=== PATIENT | female | born 1990 | race Caucasian/White ===

== ENCOUNTER 2018-01-23 20:45 | Outpatient (CLI) | payer MEDICAID | END 2018-01-23 23:20 | disposition home or self-care (01) | LOC: OBT 20:45 → L-D 20:46 | DX: O46.8X3 Other antepartum hemorrhage, third trimester (principal); O62.9 Abnormality of forces of labor, unspecified; Z3A.39 39 weeks gestation of pregnancy | CPT/HCPCS: Z7500 ==

== ENCOUNTER 2018-01-30 12:48 | Inpatient (IN) | payer MEDICAID ==
[2018-01-30] MEDS: LACTATED RINGER'S 1,000 ML IV ×3 (13:45→23:23)
[2018-01-30] MEDS ORDERED: LIDOCAINE 1% (MPF) 30 ML INJ INJ (14:00)
[2018-01-30] MEDS ORDERED: MISOPROSTOL 200 MCG TAB PR (14:00)
[2018-01-30] MEDS ORDERED: IBUPROFEN 600 MG TAB PO (14:00)
[2018-01-30] MEDS ORDERED: CARBOPROST 250 MCG INJ IM (14:00)
[2018-01-30] MEDS ORDERED: OXYTOCIN 30 UNITS/LR 500 ML IV (14:00)
[2018-01-30] MEDS ORDERED: METHYLERGONOVINE 0.2 MG INJ IM (14:00)
[2018-01-30 14:07] LABS: ADD MAN DIFF? NO
[2018-01-30 14:09] LABS: WHITE BLOOD COUNT 11.9 10^3/ul (4.8-10.8)
[2018-01-30 14:09] LABS: ABNORMAL IP MESSAGE 1; BASOPHILS % 0.2 % (0.0-2.0); EOSINOPHILS # 0.1 10^3/ul (0.0-0.5); EOSINOPHILS % 0.8 % (0.0-7.0); HEMATOCRIT 34.1 % (37.0-47.0); HEMOGLOBIN 11.3 g/dl (12.0-16.0); LYMPHOCYTES # 1.7 10^3/ul (0.8-2.9); LYMPHOCYTES % 13.9 % (15.0-51.0); MEAN CORPUSCULAR HGB CONC 33.1 g/dl (32.0-37.0); MEAN CORPUSCULAR VOLUME 78.4 fl (82.0-101.0); MEAN PLATELET VOLUME 13.3 fl (7.4-10.4); MONOCYTE # 0.6 10^3/ul (0.3-0.9); MONOCYTES % 4.8 % (0.0-11.0); NEUTROPHIL # 9.5 10^3/ul (1.6-7.5); NEUTROPHILS % 79.5 % (39.0-77.0); PLATELET COUNT 237 10^3/UL (140-415); POSITIVE DIFF @See below; RED BLOOD COUNT 4.35 10^6/ul (4.20-5.40)
[2018-01-30 14:28] LABS: INR 0.93; PARTIAL THROMBOPLASTIN TIME 28.8 Sec (25.0-35.0); PROTIME 12.5 Sec (11.9-14.9)
[2018-01-30 15:09] LABS: RAPID PLASMA REAGIN NONREACTIVE (NR)
[2018-01-30 15:54] LABS: HEPATITIS B SURFACE ANTIGEN NEGATIVE (NEGATIVE)
[2018-01-31] MEDS ORDERED: BUTORPHANOL 2 MG INJ IV (01:00)
[2018-01-31] MEDS ORDERED: OXYTOCIN 30 UNITS/LR 500 ML IV ×3 (01:00→13:00)
[2018-01-31] MEDS: LACTATED RINGER'S 1,000 ML IV ×2 (06:47→06:58)
[2018-01-31] MEDS ORDERED: OXYTOCIN 30 UNITS/LR 500 ML BAG IV (07:00)
[2018-01-31] MEDS ORDERED: PROPOFOL 200 MG INJ (07:00)
[2018-01-31] MEDS ORDERED: PHENYLephrine (100 MCG/ML) 5ML SYG (07:26)
[2018-01-31] MEDS ORDERED: FENTAnyl 50 MCG/ML VIAL (07:26)
[2018-01-31] MEDS ORDERED: morphine SULFATE/PF (10 MG/10 ML) INJ (07:26)
[2018-01-31] MEDS ORDERED: BUPIVACAINE 0.75%/DEXT (SPINAL) 2 ML INJ (07:29)
[2018-01-31] MEDS: CEFAZOLIN 2 GM/50 ML (PMX) 50 ML IVPB (07:45)
[2018-01-31] MEDS ORDERED: DEXAMETHASONE 4 MG/ML 1 ML INJ (08:01)
[2018-01-31] MEDS ORDERED: ONDANSETRON 4 MG INJ (08:01)
[2018-01-31] MEDS ORDERED: HYDROmorphONE 0.5 MG/0.5 ML SYG IV ×2 (08:30)
[2018-01-31] MEDS ORDERED: NALBUPHINE HCL (10 MG/1 ML) INJ IV (08:30)
[2018-01-31] MEDS ORDERED: ZOLPIDEM 5 MG TAB PO (08:30)
[2018-01-31] MEDS ORDERED: DIPHENHYDRAMINE 50 MG INJ IV (08:30)
[2018-01-31] MEDS ORDERED: NALOXONE (0.4 MG/ML) INJ IV (08:30)
[2018-01-31] MEDS: ONDANSETRON 4 MG INJ IV (09:06)
[2018-01-31] MEDS: OXYTOCIN 30 UNITS/LR 500 ML IV ×4 (10:19→21:58)
[2018-01-31] MEDS ORDERED: MISOPROSTOL 200 MCG TAB PR (13:00)
[2018-01-31] MEDS ORDERED: METHYLERGONOVINE 0.2 MG INJ IM (13:00)
[2018-01-31] MEDS ORDERED: CARBOPROST 250 MCG INJ IM (13:00)
[2018-01-31] MEDS: CEFAZOLIN 1 GM/50 ML (PMX) 50 ML IVPB (16:31)
[2018-01-31] MEDS: SENNA/DOCUSATE NA (8.6MG/50MG) TAB PO (21:00)
[2018-02-01] MEDS: OXYTOCIN 30 UNITS/LR 500 ML IV ×4 (01:42→12:58)
[2018-02-01] MEDS: KETOROLAC 30 MG INJ IV (05:51)
[2018-02-01 06:27] LABS: ADD MAN DIFF? NO
[2018-02-01 06:35] LABS: ABNORMAL IP MESSAGE 1; BASOPHILS % 0.2 % (0.0-2.0); EOSINOPHILS % 0.2 % (0.0-7.0); HEMATOCRIT 28.6 % (37.0-47.0); HEMOGLOBIN 9.3 g/dl (12.0-16.0); LYMPHOCYTES # 1.9 10^3/ul (0.8-2.9); LYMPHOCYTES % 14.4 % (15.0-51.0); MEAN CORPUSCULAR HEMOGLOBIN 25.4 pg (29.0-33.0); MEAN CORPUSCULAR HGB CONC 32.5 g/dl (32.0-37.0); MEAN CORPUSCULAR VOLUME 78.1 fl (82.0-101.0); MEAN PLATELET VOLUME 13.3 fl (7.4-10.4); MONOCYTES % 7.6 % (0.0-11.0); NEUTROPHILS % 77.1 % (39.0-77.0); PLATELET COUNT 199 10^3/UL (140-415); RED BLOOD COUNT 3.66 10^6/ul (4.20-5.40); RED CELL DISTRIBUTION WIDTH 16.5 % (11.5-14.5)
[2018-02-01 06:43] LABS: POSITIVE DIFF @See below
[2018-02-01 08:04] LABS: RHOGAM PROFILE 1 1
[2018-02-01] MEDS ORDERED: OXYCODONE/ACETAMINOPHEN (5/325) TAB PO ×2 (08:30)
[2018-02-01] MEDS ORDERED: HYDROCODONE/APAP (5/325) TAB PO (08:30)
[2018-02-01] MEDS: SENNA/DOCUSATE NA (8.6MG/50MG) TAB PO ×2 (09:32→21:09)
[2018-02-01] MEDS: FOLIC ACID 0.4 MG TAB PO (09:32)
[2018-02-01] MEDS: IBUPROFEN 600 MG TAB PO ×2 (13:15→17:49)
[2018-02-02] MEDS: IBUPROFEN 600 MG TAB PO ×5 (00:20→23:47)
[2018-02-02] MEDS: HYDROCODONE/APAP (5/325) TAB PO ×2 (02:42→04:20)
[2018-02-02] MEDS: FOLIC ACID 0.4 MG TAB PO (09:05)
[2018-02-02] MEDS: SENNA/DOCUSATE NA (8.6MG/50MG) TAB PO ×2 (09:05→20:39)
[2018-02-02] MEDS: LANOLIN 7 GM TUBE TOP (20:15)
[2018-02-03] MEDS: HYDROCODONE/APAP (5/325) TAB PO (00:34)
[2018-02-03] MEDS: IBUPROFEN 600 MG TAB PO ×2 (05:41→11:52)
[2018-02-03] MEDS: SENNA/DOCUSATE NA (8.6MG/50MG) TAB PO (09:49)
[2018-02-03] MEDS: FOLIC ACID 0.4 MG TAB PO (09:49)
[2018-02-03] MEDS: DIPHTH/TET/ACEL PERTUSS (ADULT) 0.5 ML VIAL IM* (09:51)
== END 2018-02-03 12:10 | disposition home or self-care (01) | DRG 765 ==
LOC: OBT 12:48 → L-D 12:49 → OBT 12:49 → L-D 01-31 08:48 → PP1 01-31 12:50 → L-D 13:01
PROVIDERS: Obstetrics & Gynecology
PROC: 10D00Z1 Extraction of Products of Conception, Low, Open Approach (ICD-10-PCS; principal; 2018-01-31 07:00)
PROC: 3E033VJ Introduction of Other Hormone into Peripheral Vein, Percutaneous Approach (ICD-10-PCS; 2018-01-31 07:00)
DX: O48.0 Post-term pregnancy (principal); Z68.41 Body mass index [BMI] 40.0-44.9, adult; Z3A.40 40 weeks gestation of pregnancy; O62.0 Primary inadequate contractions; O99.214 Obesity complicating childbirth; E66.9 Obesity, unspecified; Z37.0 Single live birth
CPT/HCPCS: 76815; 85025; 85610; 85730; 86592; 86850; 86885; 86900; 86901; 87340; 94760; 99464